=== PATIENT | female | born 1995 | race Caucasian/White ===

== ENCOUNTER 2025-03-12 16:24 | Outpatient (CLI) | payer BC, SELFPAY ==
--- NOTE | ~2025-03-12 | US_ITS ---
EXAMINATION: US OB <=14 wk fetus w TV DATE: 03/12/2025 17:27 INDICATION: Threatened TECHNIQUE: Real-time pelvic ultrasound utilizing both a transvaginal and transabdominal probe was pe rformed. The interpreting radiologist was not present for the study. COMPARISON: None. FINDINGS: The uterus measures 7.2 x 3.4 x 4.2 cm. There is no intrauterine gestational sac. A gestational sac is seen however at the left adnexa along side the left ovary. Within the ectopic is and 8 m m pole with heart motion measuring 140 beats per minute (bpm) by M-mode Doppler. The 8 m m crown-rump length correlates with an estimated gestational age of 6 weeks and 2 days. The right ovary measures 2.3 x 2.2 x 1.4 cm. The left ovary measures 2.5 x 1.9 x 1.6 cm. There is a 1 0 mm anechoic likely corpus luteum cyst in the left ovary. There is minimal amount of anechoic free f luid in the pelvis. IMPRESSION: 1. Left adnexal ectopic with 8mm pole or heart rate of 140 bpm. No intrauterine gestational sac. Dr. Marroquin discussed these findings with Dr. Zacarias at 5:15 PM. 2. Gestational age by ultrasound of 6 weeks 2 day(s) +/- 3 day(s). Reviewed, dictated and finalized at location A. IMPRESSION: 1. Left adnexal ectopic with 8mm pole or heart rate of 14 0 bpm. No intrauterine gestational sac. Dr. Marroquin discussed these findings w ith Dr. Zacarias at 5:15 PM. 2. Gestational age by ultrasound of 6 weeks 2 day(s) +/- 3 day(s).
--- OUTSIDE RECORDS SUMMARY | 2025-03-12 16:55 | XMS_ITS | Clinical Summary ---
Author Organization [address] Address [address] [place] [id number] Care Team Providers Care Heating And Ventilating Drafter Name Role Phone No, Physician Primary Care Provider [phone] Allergies No known active allergies Medications mupirocin (BACTROBAN) 2 % ointmentIndicat ions:Paronychia of great toe of left foot Apply topically 3 (three) times a day for 10 days 22 g 5 03/10/20 25 cephalexin (KEFLEX) 500 mg capsuleIndicati ons:Paronychia of great toe of left foot Take 1 capsule (500 mg total) by mouth 3 (three) times a day for 7 days 21 capsule 5 03/07/20 25 Active Problems No known active problems Encounters Date Type Department Care Team Description 02/28/2025 5:30 PM CDT Office Visit [facility] at [address] [place] [phone] Rianna Meade NP Paronychia of great toe of left foot (Primary Dx) from Last 3 Months Social History Tobacco Use Types Packs/Day Years Used Date Smoking Tobacco: Never Assessed Comments No Sex and Gender Information Value Date Recorded Sex Assigned at Not on file Legal Sex Female 10:11 AM CDT Gender Identity Not on file Sexual Orientation Not on file Obstetrics History Last Filed Vital Signs Vital Sign Reading Time Taken Comments Blood Pressure 124/70 02/28/2025 5:41 PM CDT Pulse 74 02/28/2025 5:41 PM CDT Temperature 36.7 C (98 F) 02/28/2025 5:41 PM CDT Respiratory Rate 17 02/28/2025 5:41 PM CDT Oxygen Saturation 99% 02/28/2025 5:41 PM CDT Inhaled Oxygen Concentration - - Weight 74.8 kg (165 lb) 02/28/2025 5:41 PM CDT Height 160 cm (5' 3 ) 02/28/2025 5:41 PM CDT Body Mass Index 29.23 02/28/2025 5:41 PM CDT Plan of Treatment Health Maintenance Due Date Last Done Comments Cervical Cancer Screening 1995 Depression Screening 1995 Hepatitis C Screening 1995 DTaP/Tdap/Td Vaccine (1 - Tdap) 2006 Varicella Vaccines (1 of 2 - 13+ 2-dose series) 2008 Hepatitis B Screening 2013 Regular Well Visit/Exam 18-64 2013 Influenza Vaccine (Season Ended) 2025 HPV Vaccines Aged Out No longer eligi ble based on patient's age to complete this topic Pneumococcal vaccine <65 Aged Out No longer eligible based on patient's age to complete this topic Insurance [facility] OOS Care Teams Heating And Ventilating Drafter Relationship Specialty Start Date End Date No, Physician PCP - General 02/28/25
--- OUTSIDE RECORDS SUMMARY | 2025-03-12 16:55 | XMS_ITS | Referral Summary ---
Author Organization [address] Address [address] [place] [id number] Care Team Providers Care Ink Blender Name Role Phone No, Physician Primary Care Provider [phone] Encounters Date Type Department Care Team Description 02/28/2025 5:30 PM CDT Office Visit [facility] at [address] [place] [phone] Rianna Meade, JULIANO Paronychia of great toe of left foot (Primary Dx) from Last 3 Months Allergies No known active allergies Medications mupirocin [...] 25 Active Problems No known active problems Social History Tobacco Use Types Packs/Day Years Used Date Smoking Tobacco: Never Assessed Comments No Sex and Gender Information Value Date Recorded Sex Assigned at Not on file Legal Sex Female 10:11 AM CDT Gender Identity Not on file Sexual Orientation Not on file Last Filed Vital Signs Vital Sign Reading [...] 02/28/2025 5:41 PM CDT Plan of Treatment Not on file Insurance [employer] OOS Care Teams Ink Blender Relationship Specialty Start Date End Date No, Physician PCP - General 02/28/25
== END 2025-03-12 16:25 | disposition home or self-care (01) ==
PROVIDERS: PCP Advanced Practice Midwife; Visit Provider Advanced Practice Midwife
DX: O00.102 Left tubal pregnancy without intrauterine pregnancy (principal)
CPT/HCPCS: 76801; 76817